=== PATIENT | female | born 1935 | race Caucasian/White ===

== ENCOUNTER → 2017-01-24 | Outpatient (CLI) | payer MEDICARE, BC ==
[~2017-01-24] MED LIST: ACET-2321 PO; ASCO10007 PO; BETA1TAB20 PO; BIOT25008 PO; CELE-85 PO; CHOL100045 PO; ESCI20TA30 PO; GLUC-210 PO; LEVO100T12 PO; OMEP40CA52 PO; OXYB10TA PO; ROPI0.5T4 PO; SUCR1TAB PO; TRAM50TA53 PO; [UNRECOGNIZED DRUG - CODE] PO
[2017-01-24 10:40] LABS: BASOPHILS % (AUTO) 0.5 % (0-2); EOSINOPHILS # (AUTO) 0.3 T/MM3 (0-0.5); HGB - HEMOGLOBIN 13.2 GM/DL (12-16); IMMATURE GRANULOCYTE # (AUTO) 0.01 T/MM3 (0.00-0.03); IMMATURE GRANULOCYTE % (AUTO) 0.2 % (0.0-0.5); LYMPHOCYTES # (AUTO) 0.8 T/MM3 (1-4.8); LYMPHOCYTES % (AUTO) 14.2 % (23-45); MEAN CORPUSCULAR HGB 30.8 UUG (26-34); MEAN CORPUSCULAR HGB CONC(MCHC 33.8 GM/DL (31-37); MEAN CORPUSCULAR VOLUME 90.9 UM3 (80-100); MEAN PLATELET VOLUME 8.8 UM3 (9.4-12.4); MONOCYTES # (AUTO) 0.6 T/MM3 (0-0.8); MONOCYTES % (AUTO) 11.4 % (0-9.0); NEUTROPHILS #(AUTO)-ABSOLUTE 3.8 T/MM3 (1.8-7.7); NEUTROPHILS % (AUTO) 67.7 % (33-66); RED BLOOD COUNT 4.29 M/MM3 (4.00-5.20); WBC - WHITE BLOOD COUNT 5.6 T/MM3 (4.5-11.0)
[2017-01-24 10:52] LABS: ALBUMIN/GLOBULIN RATIO 1.5 RATIO (1.1-2.2); ALKALINE PHOSPHATASE 71 U/L (38-126); ALT (SGPT) 33 U/L (9-52); ANION GAP 12 MEQ/L (5-15); AST (SGOT) 37 U/L (14-36); BUN/CREATININE RATIO 35 RATIO (6-26); CALCIUM 9.9 MG/DL (8.4-10.2); CHLORIDE 100 MEQ/L (98-107); CO2 - CARBON DIOXIDE 30 MEQ/L (22-30); CREATININE 0.8 MG/DL (0.7-1.2); GLOMERULAR FILTRATION RATE 69; GLUCOSE 94 MG/DL (65-110); LDH 538 U/L (313-618); SODIUM 142 MEQ/L (134-144); TOTAL PROTEIN 6.7 G/DL (6.3-8.2)
[2017-01-24 11:17] LABS: CA 27-29 CALCULATED 14.91 U/ML (0-37.7)
== END ==
LOC: WC.BC 09:10
PROVIDERS: ATTEND Internal Medicine Hematology & Oncology
DX: C50.211 Malignant neoplasm of upper-inner quadrant of right female breast (principal); N64.59 Other signs and symptoms in breast; Z08 Encounter for follow-up examination after completed treatment for malignant neoplasm; Z17.0 Estrogen receptor positive status [ER+]
CPT/HCPCS: 36415; 80053; 83615; 85025; 86300; G0204; G0279

== ENCOUNTER → 2017-01-24 | Outpatient (CLI) | payer MEDICARE, BC | LOC: IMA 09:54 | PROVIDERS: ATTEND Internal Medicine | DX: M85.89 Other specified disorders of bone density and structure, multiple sites (principal); E28.39 Other primary ovarian failure; Z82.62 Family history of osteoporosis; Z87.828 Personal history of other (healed) physical injury and trauma ==